=== PATIENT | female | born 1990 | race Caucasian/White ===

== ENCOUNTER 2018-11-09 12:57 | Emergency (ER) | payer OTHER ==
--- NOTE | 2018-11-09 15:03 | ED ---
Abdominal Pain/Female - HPI Summary HPI Summary: Pt is a 28 y/o F presenting to the ED with a chief complaint of abdominal pain initially onset a couple of days ago, worsening today. She describes it as sharp and intermittent, located mostly in the RUQ but is diffuse, and her appetite has been decreased in association with it. She took a laxative yesterday as she thought she was constipated. She notes associated diaphoresis, chills, and frequency of urination. Pt denies any fever, erythema of eyes, sore throat, CP, SOB, cough, N/V, dysuria, hematuria, myalgia, edema, rash, or dizziness. She is 11wks . A1 - History of Current Complaint Chief Complaint: EDAbdPain Stated Complaint: STOMACH PAINS PER PT Time Seen by Provider: 11/09/18 14:40 Hx Obtained From: Patient ?: Yes - 11wks Onset/Duration: Gradual Onset, Lasting Days, Still Present Timing: Days Severity Initially: Moderate Severity Currently: Moderate Pain Intensity: 4 Pain Scale Used: 0-10 Numeric Location: Diffuse Radiates: No Character: Cramping Aggravating Factor(s): Nothing Alleviating Factor(s): Nothing Associated Signs and Symptoms: Positive: Diaphoresis, Decreased Appetite. Negative: Fever, Cough, Chest Pain, Urinary Symptoms, Nausea, Vomiting Allergies/Adverse Reactions: Allergies Allergy/AdvReac Type Severity Reaction Status Date / Time Penicillins Allergy Unknown Verified 11/09/18 13:15 Reaction Details Home Medications: Home Medications One Tablet 1 tab PO DAILY 11/09/18 [History Confirmed 11/09/18] PMH/Surg Hx/FS Hx/Imm Hx Previously Healthy: Yes Endocrine/Hematology History: Denies: Hx Diabetes GI History: Reports: Other GI Disorders - SBO from dehydration Infectious Disease History: No Infectious Disease History: Denies: Traveled Outside the [place] in Last 30 Days - Family History Known Family History: Negative: Renal Disease - Social History Occupation: Unemployed - stay at home mom Alcohol Use: None Hx Substance Use: No Substance Use Type: Reports: None Hx Tobacco Use: No Smoking Status (MU): Never Smoked Tobacco Review of Systems Positive: Chills, Skin Diaphoresis, Other - decreased appetite. Negative: Fever Negative: Erythema Negative: Sore Throat Negative: Chest Pain Negative: Shortness Of Breath, Cough Positive: Abdominal Pain. Negative: Vomiting, Nausea Positive: frequency. Negative: dysuria, hematuria Negative: Myalgia, Edema Negative: Rash Neurological: Negative - dizziness All Other Systems Reviewed And Are Negative: Yes Physical Exam - Summary Physical Exam Summary: Constitutional: Well-developed, Well-nourished, Alert. (-) Distressed Skin: Warm, Dry HENT: Normocephalic; Atraumatic Eyes: Conjunctiva normal Neck: Musculoskeletal ROM normal neck. (-) JVD, (-) Stridor, (-) Tracheal deviation Cardio: Rhythm regular, rate normal, Heart sounds normal; Intact distal pulses; The pedal pulses are 2+ and symmetric. Radial pulses are 2+ and symmetric. (-) Murmur Pulmonary/Chest wall: Effort normal. (-) Respiratory distress, (-) Wheezes, (-) Rales Abd: Soft, very mild RUQ tenderness (-) Distension, (-) Guarding, (-) Rebound Musculoskeletal: (-) Edema Lymph: (-) Cervical adenopathy Neuro: Alert, Oriented x3 Psych: Mood and affect Normal Triage Information Reviewed: Yes Vital Signs On Initial Exam: Initial Vitals Temp Pulse Resp BP Pulse Ox 98.1 F 100 18 128/102 100 11/09/18 13:11 11/09/18 13:11 11/09/18 13:11 11/09/18 13:11 11/09/18 13:11 Vital Signs Reviewed: Yes Diagnostics - Vital Signs Vital Signs Temp Pulse Resp BP Pulse Ox 11/09/18 13:11 98.1 F 100 18 128/102 100 - Laboratory Result Diagrams: 11/09/18 15:02 11/09/18 15:02 Lab Statement: Any lab studies that have been ordered have been reviewed, and results considered in the medical decision making process. - Ultrasound US Ultrasound Interpretation Completed By: Radiologist Summary of Ultrasound Findings: SINGLE LIVE INTRAUTERINE GESTATION AT 12 WEEKS, 3 DAYS BY CROWN-RUMP LENGTH. ED physician has reviewed this report. Gallbladder US Ultrasound Interpretation Completed By: Radiologist Summary of Ultrasound Findings: NO ACUTE SONOGRAPHIC PATHOLOGY OF THE VISUALIZED PORTION OF THE ABDOMEN. ED physician has reviewed this report. Re-Evaluation - Re-Evaluation 1st re-eval Re-Evaluation Time: 16:37 Change: Unchanged Comment: Pt states the discomfort is epigastric and after eating. Abdominal Pain Fem Course/Dx - Course Course Of Treatment: Pt is a 28 y/o F presenting to the ED with a chief complaint of abdominal pain initially onset a couple of days ago, worsening today. She describes it as sharp and intermittent, located mostly in the RUQ but is diffuse, and her appetite has been decreased in association with it. She notes associated diaphoresis, chills, and frequency of urination. Pt denies any fever, erythema of eyes, sore throat, CP, SOB, cough, N/V, dysuria, hematuria, myalgia, edema, rash, or dizziness. She is 11wks . A1. Pt's physical exam shows very mild RUQ tenderness. US shows: SINGLE LIVE INTRAUTERINE GESTATION AT 12 WEEKS, 3 DAYS BY CROWN-RUMP LENGTH. Gallbladder US shows: NO ACUTE SONOGRAPHIC PATHOLOGY OF THE VISUALIZED PORTION OF THE ABDOMEN. Pt will be d/c'ed with dx of abd pain, , and UTI, and instructed to f/u with [facility] within the next 3-5 days. She is stable and agreeable with this plan. - Diagnoses Provider Diagnoses: Abdominal pain, , UTI (urinary tract infection) Discharge ED - Sign-Out/Discharge Documenting (check all that apply): Patient Departure Patient Received Moderate/Deep Sedation with Procedure: No - Discharge Plan Condition: Stable Disposition: HOME Prescriptions: Nitrofurantoin Macrocrystals* [Macrodantin 100 mg*] 100 mg PO BID #10 cap Patient Education Materials: Abdominal Pain in (ED) Referrals: [facility] [Outside] [facility] [Provider Group] Additional Instructions: Please follow up with [facility] within the next 3-5 days. Return to the emergency department with any new or worsening symptoms. - Attestation Statements Document Initiated by Scribe: Yes Documenting Scribe: Anna Olivier Provider For Whom Scribe is Documenting (Include Credential): Carlos Kennedy MD. Scribe Attestation: Anna Rosenthal, scribed for Carlos Kennedy MD. on 11/09/18 at 1724. Status of Scribe Document: Ready
[2018-11-09 15:12] LABS: ABS Eosinophils 0.1 10^3/ul (0-0.6); ABS Lymphocytes 0.7 10^3/ul (1.0-4.8); ABS Monocytes 0.4 10^3/ul (0-0.8); ABS Neutrophils 4.1 10^3/ul (1.5-7.7); Hematocrit 42 % (35-47); Hemoglobin 14.8 g/dL (12.0-16.0); Lymphocyte % 12.9 %; Mean Corpuscular HGB Conc 35 g/dL (31-36); Mean Corpuscular Hemoglobin 33 pg (27-31); Mean Corpuscular Volume 95 fL (80-97); Mean Platelet Volume 7.8 fL (7.4-10.4); Platelet Count 196 10^3/uL (150-450); Red Blood Count 4.43 10^6 /uL (3.70-4.87); Red Cell Distribution Width 13 % (10-15); White Blood Count 5.3 10^3/uL (3.5-10.8)
[2018-11-09 15:26] LABS: Albumin 4.3 g/dL (3.2-5.2); Albumin/Globulin Ratio 1.5 (1-3); BUN/Creatinine Ratio 17.9 (8-20); C Reactive Protein 29.37 mg/L (<8.01); Calcium 9.4 mg/dL (8.6-10.3); EGFR Non-African American 128.9 (>60); Globulin 2.8 g/dL (2-4); Potassium 3.4 mmol/L (3.5-5.0); Total Bilirubin 0.3 mg/dL (0.2-1.0); Total Protein 7.1 g/dL (6.4-8.9)
[2018-11-09] MEDS ORDERED: Al Hydrox/Mg Hydrox/Simet LIQ* 30 ML UDC PO ONE (16:37)
[2018-11-09 16:47] LABS: Urine Appearance Cloudy; Urine Bacteria 1+ (Absent); Urine Bilirubin Negative (Negative); Urine Blood Negative (Negative); Urine Color Amber; Urine Glucose Negative (Negative); Urine Ketones Negative (Negative); Urine Nitrite Positive (Negative); Urine Protein Negative (Negative); Urine Red Blood Cell 3+(>10/hpf) (Absent); Urine Specific Gravity 1.025 (1.010-1.030); Urine Squamous Epithelial Cell Present (Absent); Urine Urobilinogen Negative (Negative); Urine White Blood Cell 3+(>20/hpf) (Absent)
[2018-11-09] MEDS: Lidocaine 2% VISCOUS* 15 ML UDC PO ONE ×2 (16:56→17:07)
[2018-11-09] MEDS ORDERED: Nitrofurantoin Macrocrystals* 100 MG CAP PO ONE (17:22)
[2018-11-09 17:45] VITALS: BP 121/78
--- NOTE | 2018-11-12 08:22 | PN ---
Progress Note - Progress Note Date of Service: 11/09/18 Note: Urine culture preliminary grew Escherichia coli 100,000 This patient was placed on Macrobid prior to discharge This is sensitive to organism Nothing further required at this time
== END 2018-11-09 17:44 | disposition home or self-care (01) ==
LOC: ED 12:57
DX: O23.41 Unspecified infection of urinary tract in pregnancy, first trimester (principal); Z3A.12 12 weeks gestation of pregnancy; Z88.0 Allergy status to penicillin
CPT/HCPCS: 36415; 76705; 76801; 80053; 81003; 81015; 83605; 83690; 84702; 85025; 86140; 87077; 87086; 87186; 99282; A9270-GY